=== PATIENT | female | born 1950 | race Caucasian/White ===

== ENCOUNTER → 2017-01-12 | Outpatient (REF) | payer BC ==
[2017-01-12 12:04] LABS: BASO % 0.3 % (0.0-1.0); EOS # 0.1 K/mm3 (0.0-0.50); EOS % 2.4 % (0.0-3.0); LARGE UNSTAINED CELL # 0.1 K/mm3 (0.0-0.4); LARGE UNSTAINED CELL % 1.1 % (0.0-4.0); LYMPH # 1.5 K/mm3 (1.5-4.5); LYMPH % 31.9 % (24.0-44.0); MEAN CORPUSCULAR HEMOGLOBIN 29.7 pg (27.0-33.0); MEAN CORPUSCULAR HGB CONC 32.9 g/dl (32.0-36.5); MEAN CORPUSCULAR VOLUME 90.5 fl (80.0-96.0); MONO # 0.3 K/mm3 (0.0-0.8); MONO % 6.6 % (0.0-5.0); NEUTROPHILS # 2.7 K/mm3 (1.8-7.7); NEUTROPHILS % 57.5 % (36.0-66.0); PLATELET COUNT, AUTOMATED 232 k/mm3 (150-450); RED CELL DISTRIBUTION WIDTH 12.5 % (11.5-14.5); WHITE BLOOD COUNT 4.6 K/mm3 (4.0-10.0)
[2017-01-12 12:06] LABS: ALBUMIN 3.8 GM/DL (3.2-5.2); ALBUMIN/GLOBULIN RATIO 1.31 (1.00-1.93); ALKALINE PHOSPHATASE 77 U/L (45-117); ALT/SGPT 12 U/L (12-78); ANION GAP 8 MEQ/L (8-16); AST/SGOT 14 U/L (15-37); BILIRUBIN,TOTAL 0.5 MG/DL (0.2-1.0); BLOOD UREA NITROGEN 13 MG/DL (7-18); CALCIUM LEVEL 8.6 MG/DL (8.8-10.2); CARBON DIOXIDE LEVEL 29 MEQ/L (21-32); CHLORIDE LEVEL 107 MEQ/L (98-107); CHOLESTEROL LEVEL 245 MG/DL (<200); CREATININE FOR GFR 0.78 MG/DL (0.55-1.02); GLOMERULAR FILTRATION RATE > 60.0 (>45); GLUCOSE, FASTING 94 MG/DL (80-110); SODIUM LEVEL 144 MEQ/L (136-145); TOTAL PROTEIN 6.7 GM/DL (6.4-8.2); TRIGLYCERIDES LEVEL 75 MG/DL (<150)
== END ==
LOC: M SFHCCLAY 08:18
PROVIDERS: ATTEND Family Medicine
DX: Z00.00 Encounter for general adult medical examination without abnormal findings (principal); I10 Essential (primary) hypertension

== ENCOUNTER → 2017-06-07 | Outpatient (CLI) | payer BC ==
--- NOTE | 2017-06-07 12:32 | REP ---
REASON: Pain along the 4th and 5th metacarpals due to injury 5 days ago. COMPARISON: None. Rather advanced asymmetric intra-digital joint space narrowing is seen involving the DIP joints of digits 3 through 5 inclusive. More mild rather symmetric appearing joint space narrowing is seen involving all other joint spaces. There is no evidence of an acute fracture. IMPRESSION: Advanced degenerative changes as described above.
== END ==
LOC: M CLY 11:33
PROVIDERS: ATTEND Family Medicine
DX: S69.91XA Unspecified injury of right wrist, hand and finger(s), initial encounter (principal); M19.049 Primary osteoarthritis, unspecified hand; X58.XXXA Exposure to other specified factors, initial encounter; Y92.89 Other specified places as the place of occurrence of the external cause; Y93.89 Activity, other specified; Y99.8 Other external cause status

== ENCOUNTER → 2018-01-12 | Outpatient (REF) | payer BC ==
[2018-01-12 11:40] LABS: ALBUMIN 3.8 GM/DL (3.2-5.2); ALBUMIN/GLOBULIN RATIO 1.36 (1.00-1.93); ALKALINE PHOSPHATASE 62 U/L (45-117); ALT/SGPT 13 U/L (12-78); ANION GAP 6 MEQ/L (8-16); AST/SGOT 13 U/L (7-37); BILIRUBIN,TOTAL 0.4 MG/DL (0.2-1.0); BLOOD UREA NITROGEN 15 MG/DL (7-18); CALCIUM LEVEL 8.3 MG/DL (8.8-10.2); CARBON DIOXIDE LEVEL 28 MEQ/L (21-32); CHLORIDE LEVEL 109 MEQ/L (98-107); CHOLESTEROL LEVEL 236 MG/DL (<200); CHOLESTEROL RISK RATIO 3.146 (<5); GLOMERULAR FILTRATION RATE > 60.0 (>45); GLUCOSE, FASTING 89 MG/DL (70-100); HDL CHOLESTEROL 75 MG/DL (>40); LDL CHOLESTEROL 147.2 MG/DL (<100); NON-HDL-C 161 MG/DL; POTASSIUM SERUM 4.2 MEQ/L (3.5-5.1); SODIUM LEVEL 143 MEQ/L (136-145); TOTAL PROTEIN 6.6 GM/DL (6.4-8.2); TRIGLYCERIDES LEVEL 69 MG/DL (<150)
[2018-01-12 12:22] LABS: TOTAL 25(OH) VITAMIN D 29.3 NG/ML (30.0-100.0)
== END ==
LOC: M SFHCCLAY 09:11
DX: E55.9 Vitamin D deficiency, unspecified (principal); I10 Essential (primary) hypertension; E78.5 Hyperlipidemia, unspecified
CPT/HCPCS: 80053

== ENCOUNTER → 2018-07-16 | Outpatient (REF) | payer BC | LOC: M SFHCCLAY 15:27 | DX: R30.0 Dysuria (principal); N30.01 Acute cystitis with hematuria | CPT/HCPCS: 87186 ==

== ENCOUNTER → 2019-01-14 | Outpatient (REF) | payer BC ==
[2019-01-14 18:02] LABS: AMORPHOUS SEDIMENT SMALL (NEGATIVE); APPEARANCE, URINE TURBID (CLEAR); BACTERIA, URINE AUTO NEGATIVE (NEGATIVE); BILIRUBIN, URINE AUTO NEGATIVE (NEGATIVE); BLOOD, URINE BLOOD 1+ (NEGATIVE); COLOR, URINE YELLOW (YELLOW); GLUCOSE, URINE (UA) AUTO NEGATIVE (NEGATIVE); KETONE, URINE AUTO TRACE mg/dL (NEGATIVE); LEUKOCYTE ESTERASE, URINE AUTO TRACE (NEGATIVE); MUCUS, URINE LARGE (NEGATIVE); NITRITE, URINE AUTO NEGATIVE (NEGATIVE); PROTEIN, URINE AUTO NEGATIVE (NEGATIVE); RBC, URINE AUTO 8 /HPF (0-3); SQUAMOUS EPITHELIAL CELL UR AU 5 /HPF (0-6); WBC, URINE AUTO 3 /HPF (0-3)
== END ==
LOC: M SFHCCLAY 10:05
PROVIDERS: ATTEND Family Medicine
DX: R39.15 Urgency of urination (principal); R30.0 Dysuria

== ENCOUNTER → 2019-03-25 | Outpatient (REF) | payer BC ==
[2019-03-25 12:46] LABS: BLOOD UREA NITROGEN 13 MG/DL (7-18); CALCIUM LEVEL 8.9 MG/DL (8.8-10.2); CARBON DIOXIDE LEVEL 27 MEQ/L (21-32); CHLORIDE LEVEL 110 MEQ/L (98-107); CREATININE FOR GFR 0.78 MG/DL (0.55-1.30); GLOMERULAR FILTRATION RATE > 60.0 (>45); GLUCOSE, FASTING 93 MG/DL (70-100); POTASSIUM SERUM 4.4 MEQ/L (3.5-5.1); SODIUM LEVEL 143 MEQ/L (136-145)
[2019-03-25 14:50] LABS: TOTAL 25(OH) VITAMIN D 19.5 NG/ML (30.0-100.0)
== END ==
LOC: M SFHCCLAY 08:16
PROVIDERS: ATTEND Family Medicine
DX: I10 Essential (primary) hypertension (principal); E55.9 Vitamin D deficiency, unspecified

== ENCOUNTER 2019-04-18 23:40 | Emergency (ER) | payer OTHER, BC ==
[~2019-04-18] VITALS: Ht 157.5 cm; Wt 57.3 kg
[2019-04-19 00:26] VITALS: BP 156/74
== END 2019-04-19 00:59 | disposition home or self-care (01) ==
LOC: M ED 23:40
DX: S69.92XA Unspecified injury of left wrist, hand and finger(s), initial encounter (principal); W46.0XXA Contact with hypodermic needle, initial encounter; Y92.89 Other specified places as the place of occurrence of the external cause; Y99.0 Civilian activity done for income or pay; Z88.8 Allergy status to other drugs, medicaments and biological substances; Z87.891 Personal history of nicotine dependence

== ENCOUNTER → 2019-04-22 | Outpatient (CLI) | payer BC ==
--- NOTE | 2019-04-22 13:56 | REPMRS ---
Patient History The patient states she has not had a clinical breast exam in over a year. Patient is postmenopausal. Family history of breast cancer at age 50 or over in maternal grandmother. No Hormone Replacement Therapy 3D TOMOSYNTHESIS WAS PERFORMED. [facility] lifetime risk for breast cancer is 3.7%. Digital Woman Screen Mammo: April 22, 2019 - Exam #: [id number] Bilateral CC and MLO view(s) were taken. Technologist: Lissette Cobb, Technologist Prior study comparison: April 01, 2010, diagnostic bilateral mammo, performed at [facility]. January 16, 2007, bilateral screening mammogram performed at [facility]. FINDINGS: There are scattered fibroglandular densities. There has been no change in the appearance of the mammogram from the prior studies. There is a mild amount of residual fibroglandular tissue which is fairly symmetric. There is no interval development of dominant mass, architectural distortion, or clustered microcalcification suggestive of malignancy. Assessment: BI-RADS/ACR category 1 mammogram. Negative Mammogram. Recommendation Routine screening mammogram in 1 year (for women over age 40). This mammogram was interpreted with the aid of an FDA-approved computer-aided dectection system. Electronically Signed By: Chaparro Grover MD 04/22/19 [id number]
--- NOTE | 2019-04-25 13:27 | DEXA ---
AP SPINE L1 - L4 0.786 -3.3 -1.6 LT FEMUR TOTAL 0.653 -2.8 -1.4 LT NECK 0.671 -2.6 -1.0 RT FEMUR TOTAL 0.649 -2.8 -1.4 RT NECK 0.667 -2.7 -1.0 TOTAL BODY TOTAL OTHER COMMENTS: There is osteoporosis of the spine and hips. The density of the spine has decreased 7.1% since 01/16/2007. The density of the left hip has increased 1.7% since 01/16/2007. The density of the right hip has decreased 6.1% since 01/16/2007. FOLLOW-UP: Recommendation for the next bone density exam: 2 years. KIMBERLY
== END ==
LOC: M WHC 12:45
PROVIDERS: ATTEND Family Medicine
DX: Z12.31 Encounter for screening mammogram for malignant neoplasm of breast (principal); Z78.0 Asymptomatic menopausal state; M85.80 Other specified disorders of bone density and structure, unspecified site

== ENCOUNTER → 2019-07-28 | Outpatient (REF) | payer BC | LOC: M LAB REF 08:37 | PROVIDERS: ATTEND Physician Assistant | DX: N39.0 Urinary tract infection, site not specified (principal) ==

== ENCOUNTER → 2019-09-23 | Outpatient (REF) | payer BC ==
[2019-09-23 12:34] LABS: CALCIUM LEVEL 9.2 MG/DL (8.8-10.2)
[2019-09-23 12:47] LABS: TOTAL 25(OH) VITAMIN D 44.4 NG/ML (30.0-100.0)
== END ==
LOC: M LABDRAWC 11:12
PROVIDERS: ATTEND Internal Medicine Endocrinology, Diabetes & Metabolism
DX: M81.0 Age-related osteoporosis without current pathological fracture (principal)

== ENCOUNTER → 2020-02-20 | Outpatient (REF) | payer BC ==
[2020-02-20 12:36] LABS: CALCIUM LEVEL 8.7 MG/DL (8.8-10.2)
[2020-02-20 12:42] LABS: TOTAL 25(OH) VITAMIN D 26.9 NG/ML (30.0-100.0)
== END ==
LOC: M LABDRAWC 11:44
PROVIDERS: ATTEND Internal Medicine Endocrinology, Diabetes & Metabolism
DX: E55.9 Vitamin D deficiency, unspecified (principal)

== ENCOUNTER → 2020-05-04 | Outpatient (REF) | payer BC ==
[2020-05-04 12:44] LABS: BLOOD UREA NITROGEN 13 MG/DL (7-18); CALCIUM LEVEL 9.1 MG/DL (8.8-10.2); CARBON DIOXIDE LEVEL 31 MEQ/L (21-32); CHLORIDE LEVEL 108 MEQ/L (98-107); GLOMERULAR FILTRATION RATE > 60.0 (>39); GLUCOSE, FASTING 89 MG/DL (70-100); POTASSIUM SERUM 4.5 MEQ/L (3.5-5.1); SODIUM LEVEL 143 MEQ/L (136-145)
== END ==
LOC: M SFHCCLAY 08:28
PROVIDERS: ATTEND Family Medicine
DX: I11.9 Hypertensive heart disease without heart failure (principal)

== ENCOUNTER → 2020-07-01 | Outpatient (REF) | payer BC | LOC: M LABDRAWC 09:45 | PROVIDERS: ATTEND Internal Medicine Endocrinology, Diabetes & Metabolism | DX: M81.0 Age-related osteoporosis without current pathological fracture (principal) ==

== ENCOUNTER → 2020-09-07 | Outpatient (CLI) | payer BC ==
--- NOTE | 2020-09-07 15:51 | REP ---
INDICATION: RO5, COUGH. COMPARISON: Comparison radiographs August 24, 2010. TECHNIQUE: Two views.. FINDINGS: Lungs are somewhat hyperinflated consistent with some degree of COPD but clear. Pleural angles are sharp. Heart is mildly prominent. Cardiothoracic ratio measures 50.3%. The aorta is tortuous but normal in caliber. Pulmonary vasculature is not increased. There are clips in the upper abdomen bilaterally. There is diffuse osteopenia. Thoracic vertebral body heights are preserved. There is a calcification in the right axilla soft tissue superimposed on the right lateral chest wall. This is unchanged from the 25/08 study. IMPRESSION: Hyperinflation consistent with some degree of COPD. Otherwise no active disease.. <Electronically signed by Agapito Strong > 09/07/20 [id number]
== END ==
LOC: M CLY 15:32
PROVIDERS: ATTEND Family Medicine
DX: R05 Cough (principal)

== ENCOUNTER → 2020-10-19 | Outpatient (REF) | payer BC ==
[2020-10-19 16:46] LABS: BLOOD UREA NITROGEN 23 MG/DL (7-18); CALCIUM LEVEL 8.9 MG/DL (8.8-10.2); CARBON DIOXIDE LEVEL 28 MEQ/L (21-32); CHLORIDE LEVEL 108 MEQ/L (98-107); CREATININE FOR GFR 0.86 MG/DL (0.55-1.30); GLOMERULAR FILTRATION RATE > 60.0 (>39); GLUCOSE, FASTING 97 MG/DL (70-100); POTASSIUM SERUM 4.5 MEQ/L (3.5-5.1); SODIUM LEVEL 142 MEQ/L (136-145)
== END ==
LOC: M SFHCCLAY 09:43
PROVIDERS: ATTEND Family Medicine
DX: R30.0 Dysuria (principal); I11.9 Hypertensive heart disease without heart failure

== ENCOUNTER → 2020-11-27 | Outpatient (REF) | payer BC | LOC: M LABDRAWC 11:06 | PROVIDERS: ATTEND Nurse Practitioner Family | DX: E55.9 Vitamin D deficiency, unspecified (principal) ==

== ENCOUNTER → 2020-12-04 | Outpatient (REF) | payer BC | LOC: M LAB REF 13:38 | PROVIDERS: ATTEND Physician Assistant | DX: L72.9 Follicular cyst of the skin and subcutaneous tissue, unspecified (principal) ==

== ENCOUNTER → 2020-12-14 | Outpatient (REF) | payer BC | LOC: M LAB REF 13:46 | PROVIDERS: ATTEND Physician Assistant | DX: C76.0 Malignant neoplasm of head, face and neck (principal) ==

== ENCOUNTER → 2021-01-05 | Outpatient (REF) | payer BC | LOC: M LAB REF 13:49 | PROVIDERS: ATTEND Dermatology | DX: D49.2 Neoplasm of unspecified behavior of bone, soft tissue, and skin (principal) ==

== ENCOUNTER → 2021-01-28 | Outpatient (REF) | payer BC | LOC: M SFHCCLAY 10:25 | PROVIDERS: ATTEND Physician Assistant | DX: R30.0 Dysuria (principal) ==

== ENCOUNTER → 2021-05-31 | Outpatient (CLI) | payer BC ==
--- NOTE | 2021-05-31 10:09 | DEXAMM ---
INDICATION: AGE RELATED OSTEOPOROSIS W/O CURRENT PATHOLOGICAL FRACTURE. COMPARISON: Comparison study is from April 22, 2019 and January 16, 2007.. TECHNIQUE: Bone density was measured using dual-energy x-ray absorptionmetry (DEXA). FINDINGS: AP SPINE L1-L4 BMD 0.807 g/cm2 Young Adult T-Score -3.1 Age Matched Z-Score 9-1.4. LT FEMUR, TOTAL BMD 0.685 g/cm2 Young Adult T-Score -2.6 Age Matched Z-Score -1.0. LT NECK BMD 0.711 g/cm2 Young Adult T-Score -2.4 Age Matched Z-Score -0.6. RT FEMUR, TOTAL BMD 0.694 g/cm2 Young Adult T-Score -2.5 Age Matched Z-Score -0.9. RT NECK BMD 0.673 g/cm2 Young Adult T-Score -2.6 Age Matched Z-Score -0.8. IMPRESSION: There is osteoporosis of the spine. There is osteoporosis of the left hip. There is osteoporosis of the right hip. The density of the spine has decreased 4.6% since the initial exam on January 16, 2007. The density of the spine increased 2.7% since most recent exam on April 22, 2019. The density of the left hip has increased 6.7% since initial exam on January 16, 2007. The density of the left hip has increased 4.9% since most recent exam on April 22, 2019. The density of the right hip has increased 0.4% since the initial exam on January 16, 2007. The density of the right hip has increased 6.9% since the most recent exam on April 22, 2019. FOLLOW-UP: Recommendation for the next bone density exam: 2 years. <Electronically signed by Agapito Strong > 05/31/21 [id number]
== END ==
LOC: M WHC 08:58
PROVIDERS: ATTEND Internal Medicine Endocrinology, Diabetes & Metabolism
DX: M81.0 Age-related osteoporosis without current pathological fracture (principal)

== ENCOUNTER → 2021-07-13 | Outpatient (REF) | payer BC | LOC: M LAB REF 19:04 | PROVIDERS: ATTEND Dermatology | DX: L57.8 Other skin changes due to chronic exposure to nonionizing radiation (principal) ==

== ENCOUNTER → 2021-07-19 | Outpatient (REF) | payer BC ==
[2021-07-19 16:26] LABS: BLOOD UREA NITROGEN 15 MG/DL (7-18); CALCIUM LEVEL 9.4 MG/DL (8.8-10.2); CARBON DIOXIDE LEVEL 27 MEQ/L (21-32); CHLORIDE LEVEL 107 MEQ/L (98-107); CREATININE FOR GFR 0.83 MG/DL (0.55-1.30); GLOMERULAR FILTRATION RATE > 60.0 (>39); GLUCOSE, FASTING 99 MG/DL (70-100); POTASSIUM SERUM 4.2 MEQ/L (3.5-5.1); SODIUM LEVEL 142 MEQ/L (136-145)
[2021-07-19 16:30] LABS: TOTAL 25(OH) VITAMIN D 38.8 NG/ML (30.0-100.0)
== END ==
LOC: M LABDRAWC 11:29
PROVIDERS: ATTEND Internal Medicine Endocrinology, Diabetes & Metabolism
DX: E55.9 Vitamin D deficiency, unspecified (principal)

== ENCOUNTER 2021-07-20 14:40 | Outpatient (CLI) | payer BC ==
[~2021-07-20] VITALS: Ht 157.5 cm; Wt 57.7 kg
[2021-07-20 15:10] VITALS: BP 132/82
[2021-07-20] MEDS ORDERED: ZOLEDRONIC ACID 5 MG in IV 1 EA IV ONE (15:30)
[2021-07-20 16:15] VITALS: BP 127/77
== END 2021-07-20 16:15 | disposition home or self-care (01) ==
LOC: M INFU 14:40
PROVIDERS: ATTEND Internal Medicine Endocrinology, Diabetes & Metabolism
DX: M81.0 Age-related osteoporosis without current pathological fracture (principal)
CPT/HCPCS: 96365; J3489

== ENCOUNTER → 2021-08-17 | Outpatient (CLI) | payer MEDICARE ==
--- NOTE | 2021-08-17 14:56 | REPMRS ---
Patient History The patient states she has not had a clinical breast exam in over a year. Family history of breast cancer at age 50 or over in maternal grandmother. No Hormone Replacement Therapy Tomosynthesis is performed. Volpara breast density is b. [facility] lifetime risk of breast cancer 3.1%. No breast complaints today Patient signed the MRS sheet No vaccine Priors on PACS Patient Identification Verified Digital Woman Screen Mammo: August 17, 2021 - Exam #: [id number] Bilateral CC and MLO view(s) were taken. Technologist: Kasia Nowak, Technologist Prior study comparison: April 22, 2019, bilateral digital woman screen mammo performed at [facility]. April 01, 2010, diagnostic bilateral mammo, performed at [facility]. FINDINGS: There are scattered fibroglandular densities. There has been no change in the appearance of the mammogram from the prior studies. There is a mild amount of residual fibroglandular tissue which is fairly symmetric. There is no interval development of dominant mass, architectural distortion, or clustered microcalcification suggestive of malignancy. Assessment: BI-RADS/ACR category 1 mammogram. Negative Mammogram. Recommendation Routine screening mammogram in 1 year (for women over age 40). This mammogram was interpreted with the aid of an FDA-approved computer-aided dectection system. Electronically Signed By: Chaparro Grover MD 08/17/21 [id number]
== END ==
LOC: M WHC 13:27
PROVIDERS: ATTEND Family Medicine
DX: Z12.31 Encounter for screening mammogram for malignant neoplasm of breast (principal)

== ENCOUNTER → 2021-10-11 | Outpatient (REF) | payer MEDICARE | LOC: M SFHCCAPE 13:23 | PROVIDERS: ATTEND Physician Assistant | DX: R30.0 Dysuria (principal) | CPT/HCPCS: 81002; 87086; G0463 ==

== ENCOUNTER → 2021-10-18 | Outpatient (REF) | payer MEDICARE ==
[2021-10-18 12:19] LABS: BLOOD UREA NITROGEN 22 MG/DL (7-18); CALCIUM LEVEL 9.5 MG/DL (8.8-10.2); CARBON DIOXIDE LEVEL 30 MEQ/L (21-32); CHLORIDE LEVEL 106 MEQ/L (98-107); CREATININE FOR GFR 0.85 MG/DL (0.55-1.30); GLOMERULAR FILTRATION RATE > 60.0 (>39); GLUCOSE, FASTING 102 MG/DL (70-100); POTASSIUM SERUM 4.5 MEQ/L (3.5-5.1); SODIUM LEVEL 140 MEQ/L (136-145)
== END ==
LOC: M SFHCCLAY 08:43
PROVIDERS: ATTEND Family Medicine
DX: I11.9 Hypertensive heart disease without heart failure (principal)
CPT/HCPCS: 80048; G0463

== ENCOUNTER → 2021-11-23 | Outpatient (REF) | payer BC ==
[2021-11-23 16:27] LABS: BLOOD UREA NITROGEN 17 MG/DL (7-18); CALCIUM LEVEL 9.5 MG/DL (8.8-10.2); CARBON DIOXIDE LEVEL 28 MEQ/L (21-32); CHLORIDE LEVEL 106 MEQ/L (98-107); CREATININE FOR GFR 0.88 MG/DL (0.55-1.30); GLOMERULAR FILTRATION RATE > 60.0 (>39); GLUCOSE, FASTING 102 MG/DL (70-100); POTASSIUM SERUM 4.2 MEQ/L (3.5-5.1); SODIUM LEVEL 141 MEQ/L (136-145)
== END ==
LOC: M LABDRAWC 13:24
PROVIDERS: ATTEND Internal Medicine Endocrinology, Diabetes & Metabolism
DX: M81.0 Age-related osteoporosis without current pathological fracture (principal)

== ENCOUNTER → 2021-12-01 | Outpatient (REF) | payer MEDICARE ==
[2021-12-01 14:17] LABS: FREE T4 0.87 NG/DL (0.76-1.46); THYROID STIMULATING HORMONE 1.79 uIU/ML (0.358-3.740)
== END ==
LOC: M SFHCCLAY 09:16
PROVIDERS: ATTEND Family Medicine
DX: E07.89 Other specified disorders of thyroid (principal)

== ENCOUNTER → 2022-02-04 | Outpatient (REF) | payer MEDICARE | LOC: M SFHCCLAY 09:21 | PROVIDERS: ATTEND Family Medicine | DX: R30.0 Dysuria (principal) ==

== ENCOUNTER → 2022-02-10 | Outpatient (REF) | payer MEDICARE ==
[2022-02-10 13:55] LABS: APPEARANCE, URINE CLEAR (CLEAR); BACTERIA, URINE AUTO NEGATIVE (NEGATIVE); BILIRUBIN, URINE AUTO NEGATIVE (NEGATIVE); BLOOD, URINE BLOOD 1+ (NEGATIVE); COLOR, URINE YELLOW (YELLOW); GLUCOSE, URINE (UA) AUTO NEGATIVE (NEGATIVE); KETONE, URINE AUTO TRACE mg/dL (NEGATIVE); LEUKOCYTE ESTERASE, URINE AUTO NEGATIVE (NEGATIVE); NITRITE, URINE AUTO NEGATIVE (NEGATIVE); PROTEIN, URINE AUTO NEGATIVE (NEGATIVE); RBC, URINE AUTO 1 /HPF (0-3); SPECIFIC GRAVITY URINE AUTO 1.013 (1.002-1.035); SQUAMOUS EPITHELIAL CELL UR AU 4 /HPF (0-6); UROBILINOGEN, URINE AUTO 0.2 mg/dL (0.0-2.0); WBC, URINE AUTO 1 /HPF (0-3)
== END ==
LOC: M SMT 12:54
PROVIDERS: ATTEND Nurse Practitioner Women's Health
DX: R31.29 Other microscopic hematuria (principal)

== ENCOUNTER → 2022-06-14 | Outpatient (REF) | payer MEDICARE ==
[2022-06-14 12:15] LABS: BLOOD UREA NITROGEN 21 MG/DL (7-18); CARBON DIOXIDE LEVEL 26 MEQ/L (21-32); CHLORIDE LEVEL 111 MEQ/L (98-107); CREATININE FOR GFR 0.87 MG/DL (0.55-1.30); GLOMERULAR FILTRATION RATE > 60.0 (>39); GLUCOSE, FASTING 90 MG/DL (70-100); POTASSIUM SERUM 4.4 MEQ/L (3.5-5.1); SODIUM LEVEL 144 MEQ/L (136-145)
[2022-06-14 12:41] LABS: TOTAL 25(OH) VITAMIN D 48.7 NG/ML (30.0-100.0)
== END ==
LOC: M LABDRAWC 10:56
PROVIDERS: ATTEND Internal Medicine Endocrinology, Diabetes & Metabolism
DX: M81.0 Age-related osteoporosis without current pathological fracture (principal); E04.0 Nontoxic diffuse goiter; E55.9 Vitamin D deficiency, unspecified

== ENCOUNTER → 2022-07-06 | Outpatient (REF) | payer MEDICARE ==
[2022-07-06 12:09] LABS: CHOLESTEROL RISK RATIO 2.532 (<5)
== END ==
LOC: M SFHCCLAY 08:09
PROVIDERS: ATTEND Family Medicine
DX: E78.00 Pure hypercholesterolemia, unspecified (principal)

== ENCOUNTER → 2022-08-01 | Outpatient (REF) | payer MEDICARE ==
[2022-08-01 12:52] LABS: CALCIUM LEVEL 9.1 MG/DL (8.8-10.2); CREATININE FOR GFR 1.01 MG/DL (0.55-1.30); GLOMERULAR FILTRATION RATE 57.2 (>39); POTASSIUM SERUM 4.5 MEQ/L (3.5-5.1)
== END ==
LOC: M LABDRAWC 11:11
PROVIDERS: ATTEND Nurse Practitioner Family
DX: M81.0 Age-related osteoporosis without current pathological fracture (principal)

== ENCOUNTER → 2023-06-01 | Outpatient (CLI) | payer MEDICARE | LOC: M WHC 11:57 | PROVIDERS: ATTEND Family Medicine | DX: Z12.31 Encounter for screening mammogram for malignant neoplasm of breast (principal) ==

== ENCOUNTER → 2023-06-01 | Outpatient (CLI) | payer MEDICARE | LOC: M WHC 11:58 | PROVIDERS: ATTEND Internal Medicine Endocrinology, Diabetes & Metabolism | DX: M81.0 Age-related osteoporosis without current pathological fracture (principal) ==

== ENCOUNTER → 2023-08-28 | Outpatient (REF) | payer MEDICARE ==
[2023-08-29 03:06] LABS: BLOOD UREA NITROGEN 19 MG/DL (9-23); CARBON DIOXIDE LEVEL 29 MMOL/L (20-31); CHLORIDE LEVEL 105 MMOL/L (98-107); GLOMERULAR FILTRATION RATE > 60.0 (>39); GLUCOSE, FASTING 96 MG/DL (74-106); POTASSIUM SERUM 4.1 MMOL/L (3.5-5.1); SODIUM LEVEL 140 MMOL/L (136-145); TOTAL 25(OH) VITAMIN D 52.4 NG/ML (20.0-100.0)
== END ==
LOC: M LABDRAWP 17:40
PROVIDERS: ATTEND Internal Medicine Endocrinology, Diabetes & Metabolism
DX: M81.0 Age-related osteoporosis without current pathological fracture (principal)

== ENCOUNTER → 2024-08-02 | Outpatient (CLI) | payer MEDICARE | LOC: M RAD 08:46 | PROVIDERS: ATTEND Family Medicine | DX: R91.1 Solitary pulmonary nodule (principal); R05.3 Chronic cough ==

== ENCOUNTER → 2024-08-15 | Outpatient (CLI) | payer MEDICARE | LOC: M PLAIMG 08:48 | PROVIDERS: ATTEND Family Medicine | DX: R93.89 Abnormal findings on diagnostic imaging of other specified body structures (principal) ==

== ENCOUNTER → 2024-11-15 | Outpatient (REF) | payer MEDICARE ==
[2024-11-15 17:25] LABS: ALBUMIN 3.9 G/DL (3.2-5.2); ALKALINE PHOSPHATASE 59 U/L (35-104); ALT/SGPT 13 U/L (7.0-40); AST/SGOT 16 U/L (<34); BILIRUBIN,TOTAL 0.5 MG/DL (0.3-1.2); BLOOD UREA NITROGEN 18 MG/DL (9-23); CARBON DIOXIDE LEVEL 29 MMOL/L (20-31); CHLORIDE LEVEL 107 MMOL/L (98-107); CHOLESTEROL LEVEL 238 MG/DL (<200); CHOLESTEROL RISK RATIO 3.87 (<5); CREATININE FOR GFR 0.92 MG/DL (0.55-1.30); GLOMERULAR FILTRATION RATE > 60.0 (>39); GLUCOSE, FASTING 94 MG/DL (74-106); HDL CHOLESTEROL 61.4 MG/DL (>40); LDL CHOLESTEROL 155.2 MG/DL (<100); NON-HDL-C 176.6 MG/DL; SODIUM LEVEL 139 MMOL/L (136-145); TRIGLYCERIDES LEVEL 107 MG/DL (<150)
== END ==
LOC: M SFHCCLAY 13:27
PROVIDERS: ATTEND Nurse Practitioner Family
DX: J01.00 Acute maxillary sinusitis, unspecified (principal); M81.0 Age-related osteoporosis without current pathological fracture; I10 Essential (primary) hypertension; R93.89 Abnormal findings on diagnostic imaging of other specified body structures; Z79.899 Other long term (current) drug therapy

== ENCOUNTER → 2025-06-02 | Outpatient (CLI) | payer MEDICARE | LOC: M WHC 13:14 | PROVIDERS: ATTEND Nurse Practitioner Family | DX: Z12.31 Encounter for screening mammogram for malignant neoplasm of breast (principal); R92.313 Mammographic fatty tissue density, bilateral breasts ==

== ENCOUNTER → 2025-07-14 | Outpatient (CLI) | payer MEDICARE | LOC: M WHC 13:14 | PROVIDERS: ATTEND Nurse Practitioner Family | DX: M81.0 Age-related osteoporosis without current pathological fracture (principal) ==

== ENCOUNTER → 2025-07-15 | Outpatient (CLI) | payer MEDICARE | LOC: M CLY 09:58 | PROVIDERS: ATTEND Physician Assistant | DX: M25.562 Pain in left knee (principal) ==

== ENCOUNTER → 2025-08-22 | Outpatient (REF) | payer MEDICARE ==
[2025-08-22 13:13] LABS: CALCIUM LEVEL 9.0 MG/DL (8.3-10.6); CARBON DIOXIDE LEVEL 29.0 MMOL/L (20-31); CHLORIDE LEVEL 105.0 MMOL/L (98-107); CREATININE FOR GFR 0.91 MG/DL (0.55-1.30); GLOMERULAR FILTRATION RATE 65.4 (>39); POTASSIUM SERUM 4.4 MMOL/L (3.5-5.1); SODIUM LEVEL 143.0 MMOL/L (136-145)
[2025-08-22 13:17] LABS: TOTAL 25(OH) VITAMIN D 37.4 NG/ML (20.0-100.0)
== END ==
LOC: M LAB REF 12:16 → M LABDRAWC 12:16
PROVIDERS: ATTEND Nurse Practitioner Family
DX: M81.0 Age-related osteoporosis without current pathological fracture (principal)

== ENCOUNTER → 2025-10-07 | Outpatient (REF) | payer MEDICARE ==
[2025-10-07 18:19] LABS: CALCIUM LEVEL 9.3 MG/DL (8.3-10.6); CARBON DIOXIDE LEVEL 28.0 MMOL/L (20-31); CHLORIDE LEVEL 103.0 MMOL/L (98-107); CREATININE FOR GFR 0.89 MG/DL (0.55-1.30); GLOMERULAR FILTRATION RATE 67.2 (>39); POTASSIUM SERUM 4.4 MMOL/L (3.5-5.1); SODIUM LEVEL 139.0 MMOL/L (136-145)
== END ==
LOC: M LABDRAWC 17:42
PROVIDERS: ATTEND Nurse Practitioner Family
DX: M81.0 Age-related osteoporosis without current pathological fracture (principal)